=== PATIENT | male | born 1990 | race Caucasian/White ===

== ENCOUNTER 2018-02-08 06:47 | Emergency (ER) | payer OTHER ==
[2018-02-08 07:33] VITALS: BMI 25.8
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
[2018-02-08 10:21] VITALS: BP 116/63; PULSE 75; TEMP 98
== END 2018-02-08 10:20 | disposition home or self-care (01) ==
LOC: JER 06:47
PROC: 2W3CX1Z Immobilization of Right Lower Arm using Splint (ICD-10-PCS; principal; 2018-02-08)
DX: M25.531 Pain in right wrist (principal); V13.4XXA Pedal cycle driver injured in collision with car, pick-up truck or van in traffic accident, initial encounter; Y92.414 Local residential or business street as the place of occurrence of the external cause; Y93.55 Activity, bike riding; Y99.8 Other external cause status
CPT/HCPCS: 29125; 73030-TC-LT-FY; 73070-TC-LT-FY; 73110-TC-RT-FY; 73130-TC-RT-FY; 99283-25